=== PATIENT | male | born 1955 | race Hispanic/Latino ===

== ENCOUNTER 2021-06-21 09:42 | Emergency (ER) | payer OTHER ==
[~2021-06-21] VITALS: Ht 167.6 cm; Wt 102.1 kg
[~2021-06-21 09:42] MED LIST: ACET1TAB12 PO; CEPH500B PO
[2021-06-21 09:44] VITALS: BP 155/75
== END 2021-06-21 11:36 | disposition home or self-care (01) ==
LOC: EDH 09:42
DX: S46.911A Strain of unspecified muscle, fascia and tendon at shoulder and upper arm level, right arm, initial encounter (principal); Z79.899 Other long term (current) drug therapy; V49.49XA Driver injured in collision with other motor vehicles in traffic accident, initial encounter; Y93.89 Activity, other specified; Y92.89 Other specified places as the place of occurrence of the external cause; Y99.8 Other external cause status
CPT/HCPCS: 73030

== ENCOUNTER 2021-10-10 00:48 | Emergency (ER) | payer OTHER ==
[~2021-10-10] VITALS: Ht 167.6 cm; Wt 106.6 kg
[2021-10-10] MEDS ORDERED: ADENOSINE 6MG VIAL IV ONE ×3 (00:54→01:30)
[2021-10-10 01:28] LABS: BASOPHILS % (AUTO) 0.3 % (0.0-5.0); EOSINOPHILS % (AUTO) 2.8 % (0.0-8.0); HEMATOCRIT 42.8 % (42-54); LYMPHOCYTES % (AUTO) 54.3 % (21.0-51.0); MEAN CORPUSCULAR HEMOGLOBIN 33.3 pg (27.0-33.0); MEAN CORPUSCULAR HGB CONC 33.2 g/dL (32.0-36.0); MEAN CORPUSCULAR VOLUME 100.2 fL (79-99); MONOCYTES % (AUTO) 9.2 % (3.0-13.0); NEUTROPHILS % (AUTO) 33.2 % (40.0-77.0); PLATELET COUNT (AUTO) 213 K/uL (130-400); RED BLOOD CELL COUNT(AUTO) 4.27 MIL/uL (4.50-6.20); RED CELL DISTRIBUTION WIDTH 13.2 % (11.0-15.5); WHITE BLOOD COUNT (AUTO) 8.7 K/uL (4.8-10.8)
[2021-10-10] MEDS ORDERED: METOPROLOL TARTRATE 50 MG TAB PO ONE (01:30)
[2021-10-10] MEDS ORDERED: 0.9%NACL 1000ML 1,000 ML IV ONE (01:30)
[2021-10-10 01:37] LABS: CREATININE 1.1 mg/dL (0.5-1.5)
[2021-10-10 01:41] LABS: ALBUMIN 3.9 g/dL (3.5-5.0); BILIRUBIN,TOTAL 0.2 mg/dL (0.2-1.0); MAGNESIUM 1.9 mg/dL (1.80-2.40); TOTAL PROTEIN, SERUM 7.9 g/dL (6.0-8.3)
[2021-10-10 01:48] LABS: B-TYPE NATRIURETIC PEPTIDE 10 pg/mL (0-100)
[2021-10-10] MEDS ORDERED: METO50TA9 PO (01:50)
[2021-10-10 02:58] VITALS: BP 132/78
== END 2021-10-10 02:59 | disposition home or self-care (01) ==
LOC: EDH 00:48
DX: I47.1 Supraventricular tachycardia (principal); Z79.899 Other long term (current) drug therapy; E86.0 Dehydration
CPT/HCPCS: 36415; 71045; 80053; 83735; 83880; 84484; 85025; 93005 ×2; 96361; 96374; 99285; J0153; J7030

== ENCOUNTER → 2022-01-30 | Outpatient (CLI) | payer OTHER, SELFPAY ==
[~2022-01-30] MED LIST changes: +METO50TA9 PO
== END | disposition home or self-care (01) ==
LOC: OIH 09:23
PROVIDERS: ATTEND Internal Medicine Cardiovascular Disease
DX: Z13.6 Encounter for screening for cardiovascular disorders (principal)
CPT/HCPCS: 75571

== ENCOUNTER → 2022-02-20 | Outpatient (CLI) | payer OTHER | END | disposition home or self-care (01) | LOC: SHCH 15:37 | PROVIDERS: ATTEND Internal Medicine Cardiovascular Disease | DX: I47.1 Supraventricular tachycardia (principal); I11.9 Hypertensive heart disease without heart failure; E11.9 Type 2 diabetes mellitus without complications; E66.9 Obesity, unspecified | CPT/HCPCS: 93306 ==

== ENCOUNTER 2023-01-21 12:07 | Emergency (ER) | payer OTHER ==
[~2023-01-21] VITALS: Ht 167.6 cm; Wt 106.6 kg
[~2023-01-21 12:07] MED LIST changes: +FAMC500T8 PO; +GABA-529 PO; +IBUP-2070 PO
[2023-01-21 15:16] VITALS: BP 129/89
== END 2023-01-21 15:17 | disposition home or self-care (01) ==
LOC: EDH 12:07
DX: S93.491A Sprain of other ligament of right ankle, initial encounter (principal); Z79.899 Other long term (current) drug therapy; Z90.49 Acquired absence of other specified parts of digestive tract; X58.XXXA Exposure to other specified factors, initial encounter; Y93.A3 Activity, aerobic and step exercise; Y92.89 Other specified places as the place of occurrence of the external cause; Y99.8 Other external cause status
CPT/HCPCS: 73610